=== PATIENT | male | born 1980 | race Caucasian/White ===

== ENCOUNTER 2025-04-21 10:38 | Emergency (ER) | payer OTHER ==
[~2025-04-21] VITALS: Ht 167.6 cm; Wt 88.0 kg
[2025-04-21 12:23] VITALS: BP 141/97
== END 2025-04-21 12:23 | disposition home or self-care (01) ==
LOC: ED 10:38
DX: S93.402A Sprain of unspecified ligament of left ankle, initial encounter (principal); S92.022A Displaced fracture of anterior process of left calcaneus, initial encounter for closed fracture; X50.1XXA Overexertion from prolonged static or awkward postures, initial encounter
CPT/HCPCS: 73610; 73630; 99283